=== PATIENT | male | born 1995 | race Two or more races ===

== ENCOUNTER → 2023-10-17 | Emergency (ER) | payer SELFPAY ==
[~2023-10-17] VITALS: Ht 167.6 cm; Wt 55.4 kg
[2023-10-17 03:50] VITALS: BP 126/81; PULSE 88; RESP 14; O2SAT 99
== END | disposition left against medical advice (07) ==
LOC: ER 03:41
DX: R11.2 Nausea with vomiting, unspecified (principal); R10.9 Unspecified abdominal pain; Z53.21 Procedure and treatment not carried out due to patient leaving prior to being seen by health care provider